=== PATIENT | male | born 1940 | race Caucasian/White ===

== ENCOUNTER 2018-02-21 21:50 | Emergency (ER) | payer MEDICARE, OTHER ==
[~2018-02-21] VITALS: Ht 182.9 cm; Wt 97.3 kg
[2018-02-21 22:00] VITALS: Ht 182.9 cm; Wt 97.3 kg
[2018-02-21] MEDS ORDERED: NORVASC5 MG PO (22:04)
[2018-02-21] MEDS ORDERED: COUMADIN5 MG PO (22:04)
[2018-02-21] MEDS ORDERED: COREG25 MG PO (22:04)
[2018-02-21] MEDS ORDERED: ADVAIR HFA 230-12 GM (22:05)
[2018-02-21] MEDS ORDERED: VENTOLIN HFA18 GM (22:05)
[2018-02-21] MEDS ORDERED: VIAGRA25 MG (22:05)
[2018-02-21] MEDS ORDERED: SPIRIVA18 MCG INH (22:05)
[2018-02-21] MEDS ORDERED: FLOMAX0.4 MG PO (22:05)
[2018-02-21] MEDS ORDERED: STOOL SOFTENER240 MG (22:06)
[2018-02-21] MEDS ORDERED: ASPIRIN81 MG PO (22:06)
[2018-02-21] MEDS ORDERED: VITAMIN B-12100 MCG PO (22:06)
[2018-02-21] MEDS ORDERED: RANITIDINE HCL150 M1 PO (22:06)
[2018-02-22] MEDS ORDERED: MUPIROCIN22 GM TOPICAL (00:08)
[2018-02-22 00:55] VITALS: BP 108/62
== END 2018-02-22 00:56 | disposition home or self-care (01) ==
LOC: D.ER 21:50
DX: S09.90XA Unspecified injury of head, initial encounter (principal); W18.30XA Fall on same level, unspecified, initial encounter; Y93.89 Activity, other specified; Y92.89 Other specified places as the place of occurrence of the external cause; S01.81XA Laceration without foreign body of other part of head, initial encounter; R04.0 Epistaxis; Z79.01 Long term (current) use of anticoagulants; J44.9 Chronic obstructive pulmonary disease, unspecified; F17.200 Nicotine dependence, unspecified, uncomplicated

== ENCOUNTER → 2018-09-30 08:19 | Outpatient (CLI) | payer MEDICARE, OTHER ==
[2018-02-21 22:00] VITALS: BMI 29.1
[~2018-09-30 08:19] MED LIST: ADVAIR HFA 230-12 GM; ASPIRIN81 MG PO; COREG25 MG PO; COUMADIN5 MG PO; FLOMAX0.4 MG PO; MUPIROCIN22 GM TOPICAL; NORVASC5 MG PO; RANITIDINE HCL150 M1 PO; SPIRIVA18 MCG INH; STOOL SOFTENER240 MG; VENTOLIN HFA18 GM; VIAGRA25 MG; VITAMIN B-12100 MCG PO
== END | disposition home or self-care (01) ==
LOC: D.RT 08:19
PROVIDERS: ATTEND Internal Medicine Pulmonary Disease
DX: J44.9 Chronic obstructive pulmonary disease, unspecified (principal)

== ENCOUNTER → 2019-11-23 18:01 | Outpatient (CLI) | payer MEDICARE, OTHER ==
[2018-02-21 22:00] VITALS: BMI 29.1
[2019-11-23 19:35] LABS: BASOPHILS 0.1 % (0-2); EOSINOPHILS 0.3 % (0-7); HEMATOCRIT 27.4 % (42.0-54.0); HEMOGLOBIN 8.9 g/dL (13.5-17.5); LYMPHOCYTES 28.9 % (15-50); MCH 36.3 pg (26.0-34.0); MCHC 32.5 g/dL (31.0-37.0); MCV 111.8 fL (80.0-100.0); MEAN PLATELET VOLUME 9.8 fL (7.4-10.4); MONOCYTES 15.6 % (2-11); NEUTROPHILS 54.1 % (40-80); PLATELET COUNT 151 10x3/uL (130-400); RBC 2.45 10x6/uL (4.20-6.10); RDW 13.8 % (11.5-14.5); WBC 7.2 10x3/uL (4.8-10.8)
[2019-11-23 19:59] LABS: ALBUMIN 2.8 g/dL (3.4-5.0); ALKALINE PHOSPHATASE 93 U/L (30-120); ALT (SGPT) 61 U/L (10-68); BILIRUBIN - TOTAL 0.89 mg/dL (0.2-1.3); CALC OSMOLALITY 264 mosm/kg (275-300); CALCIUM 8.1 mg/dL (8.5-10.1); CARBON DIOXIDE 25.7 mmol/L (21.0-32.0); CHLORIDE - SERUM 99 mmol/L (98-107); GLUCOSE 99 mg/dL (74-106); PROTEIN - SERUM 6.4 g/dL (6.4-8.2); SODIUM 133 mmol/L (136-145); UREA NITROGEN 9 mg/dL (7-18); eGFR NON AFRICAN AMERICAN 76 mL/min (90-120)
[2019-11-23 20:17] LABS: POTASSIUM - SERUM 2.8 mmol/L (3.5-5.1)
[2019-11-23 20:18] LABS: INR 1.41 (0.85-1.17); PROTIME 17.1 SECONDS (11.6-15.0)
== END | disposition home or self-care (01) ==
LOC: D.LABREF 18:01
PROVIDERS: ATTEND Internal Medicine Hematology & Oncology
DX: C34.11 Malignant neoplasm of upper lobe, right bronchus or lung (principal); C77.1 Secondary and unspecified malignant neoplasm of intrathoracic lymph nodes

== ENCOUNTER → 2019-11-30 13:12 | Outpatient (CLI) | payer MEDICARE, OTHER ==
[2018-02-21 22:00] VITALS: BMI 29.1
[2019-11-30 14:14] LABS: BASOPHILS 0.3 % (0-2); EOSINOPHILS 0.3 % (0-7); HEMATOCRIT 28.9 % (42.0-54.0); HEMOGLOBIN 9.2 g/dL (13.5-17.5); IMMATURE GRANULOCYTES 0.3 % (0-5); LYMPHOCYTES 15.9 % (15-50); MCH 36.5 pg (26.0-34.0); MCHC 31.8 g/dL (31.0-37.0); MCV 114.7 fL (80.0-100.0); MEAN PLATELET VOLUME 9.3 fL (7.4-10.4); MONOCYTES 12.5 % (2-11); NEUTROPHILS 70.7 % (40-80); RBC 2.52 10x6/uL (4.20-6.10); RDW 14.4 % (11.5-14.5); WBC 8.7 10x3/uL (4.8-10.8)
[2019-11-30 14:19] LABS: PLATELET COUNT 262 10x3/uL (130-400)
[2019-11-30 14:23] LABS: ALBUMIN 2.5 g/dL (3.4-5.0); BILIRUBIN - TOTAL 0.54 mg/dL (0.2-1.3); CARBON DIOXIDE 24.4 mmol/L (21.0-32.0); CREATININE - SERUM 1.1 mg/dL (0.6-1.3); POTASSIUM - SERUM 3.4 mmol/L (3.5-5.1); PROTEIN - SERUM 7.5 g/dL (6.4-8.2)
[2019-11-30 14:33] LABS: INR 2.89 (0.85-1.17); PROTIME 29.7 SECONDS (11.6-15.0)
== END | disposition home or self-care (01) ==
LOC: D.LABREF 13:12
PROVIDERS: ATTEND Internal Medicine Hematology & Oncology
DX: C34.11 Malignant neoplasm of upper lobe, right bronchus or lung (principal)